=== PATIENT | male | born 1975 | race Caucasian/White ===

== ENCOUNTER 2016-11-15 20:06 | Emergency (ER) | payer OTHER ==
[2016-11-15 20:24] VITALS: BP 163/74; PULSE 74; RESP 18; TEMP 98.4; O2SAT 97
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
== END 2016-11-15 21:01 | disposition home or self-care (01) ==
DX: S43.102A Unspecified dislocation of left acromioclavicular joint, initial encounter (principal); V18.0XXA Pedal cycle driver injured in noncollision transport accident in nontraffic accident, initial encounter; Y92.410 Unspecified street and highway as the place of occurrence of the external cause; Y99.8 Other external cause status; Y93.55 Activity, bike riding